=== PATIENT | female | born 1955 | race Two or more races ===

== ENCOUNTER 2024-12-24 10:59 | Outpatient (RCR) | payer MEDICAID, SELFPAY ==
--- NOTE | 2024-12-11 16:14 | CTCCONSULT_ITS ---
[facility] [address] [place], [place] [address] Consultation Note Date: 12/11/2024 MR#: [id number] Name: NICOLE DUEÑAS : 1955 Dx: C50.212 Malignant neoplasm of upper-inner quadrant of left female breast Referring physician. Carlos Honeycutt MD Reason for consultation. Patient with left breast CA referred for radiation therapy consultation. History of Present Illness: Patient is a 69-year-old lady ultrasound 08/19/2024 revealed 1.2 cm lobulated lesion left breast 10:00 highly suggestive of malignancy. Biopsy 09/09/2024 revealed invasive ductal carcinoma. On 11/12/2024 patient underwent left partial mastectomy and sentinel node dissection performed by Dr. Darin Seaman. Final path revealed invasive ductal carcinoma 1.5 cm grade 203 with low to intermediate DCIS at least 1.3 cm. Margins negative for invasive carcinoma. DCIS present less than 0.1 cm from medial margin. 2 sentinel lymph nodes negative for mets. ER/CA positive HER2/john 1+ [id number]. Ki-67 18%. Patient has been prescribed anastrozole under Dr. Honeycutt's direction. Past Medical History: Hypothyroidism Meds. Osteoporosis meds thyroid medications Family history. 1 parent's aunt with breast cancer father had prostate cancer Social History: Patient received from [facility] first menses age 19 first age 23 last menses was 2006 Review of Systems: History of headaches muscle pain dysuria back pain hypothyroidism Physical Exam: General: Adequate nourished appearing lady no acute distress HEENT: Atraumatic no cephalic extraocular is intact no oral lesion no cervical or supraclavicular adenopathy CV: left breast with surgical changes and also axillary region healing well. Chest clear to auscultation heart regular rate and rhythm ABD: Soft no organomegaly or tenderness EXT: No signs of clubbing or edema Assessment:1. Stage IA pTicpN0 ER/CA positive HER2/john negative invasive ductal carcinoma left breast status post partial mastectomy and removal of 2 sentinel nodes 11/12/2024. 2. Patient has been prescribed anastrozole under Dr. Honeycutt's direction 3. Short course radiation therapy to the residual tissue left breast, 4000 cGy in 3 weeks with the possibility of a boost additional week depending skin response. 4. Side effects discussed consent signed. 5 Thank you very much for allowing me to evaluate and manage this patient. Cc: MD Darin Landin MD Electronically signed by: Nehemias Esquivel MD, DABR 12/11/2024 4:12 PM
--- NOTE | 2024-12-11 16:15 | CTCTXPLN_ITS ---
[facility] [address] [place], [place] [address] Physician Clinical Treatment Planning Note Date of Service: 12/11/2024 Name: NICOLE DUEÑAS : 1955 The patient has agreed to proceed with Radiation therapy. Tests and supporting medical records were interpreted to assist in defining the tumor location and extent of disease. Further imaging will be necessary to contour and delineate the volume to which the XRT will be provided. A. Treatment Int ent: Curative B. Modality: Mixed C. Requested Technique: 3D D. Treatment Site: Left breast E. Critical structures to be contoured on plan: F. In order to accomplish this plan, I am ordering/Prescribing the followin. Simulations (s) will be performed to accomplish a reproducible treatment position, to determine optimal treatment portals/beam arrangements, to design beam modifying devices and verify treatment portals on patient prior to the commencement of Radiation Therapy. Left breast 2. Devices; for immobilization and beam shaping: Vac-Pradeep 3. CT Guidance for placement of XRT stokes Scan area: 4. Portal images Frequency: 5. Invivo transit dose measurement once per week on all VMAT patients. 6. Special Physics Consult Requested for: 7. Other requests: G. Dose Objectives: Curative Electronically signed by: Nehemias Esquivel M.D. 12/11/2024 4:12 PM
--- NOTE | 2024-12-11 16:15 | CTCTXPLNST_ITS ---
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 Pt Treatment Intent: curative palliative other: Stage: Procedure CPT # Ordered Spec. Procedure 38832 Hernandez Complex (set-up) 06835 Left breast/E boost 1 Hernandez Simple 12930 1 IMRT Plan 98817 MLC Devices VMAT 21146 Hernandez 3 D 25763 1 TRTMT dev Complex 56756 Vac-Pradeep 2 tangents E boost 4 TRTMT dev simple 83545 1 Basic Iam 36673 5 Special Dosimetry 64892 Spec Physics 81086 Port Films 86843 SRS Cranial/1FX 25424 SBR 5 FX or Less /ex: 5 = 5 fx 93128 IMRT Simple 95965 IMRT Complex 00872 IGRT 02544 Rad [place] 6-10 70662 [place] 11-19 63524 5005 20 Cont Med Physics 19271 5 Treatment Planning 60122 1 Weekly Evaluation 77686 4 Rad [place] 20 mev 73509 Special Port Plan 10286 TRTMT dev inter 65861 Isodose Complex 27110 Isodose simple 31071 Resp Motion Mgmt Simulation 33807 Placement of Fiducial Markers 00421 Electronically Signed By: Nehemias Esquivel MD, JOSEPHR 12/11/2024 4:13 PM
== END 2024-12-28 23:59 | disposition home or self-care (01) ==
LOC: SCTC 10:59
PROVIDERS: PCP Physician Assistant; Referring Provider Internal Medicine Hematology & Oncology; Visit Provider Radiology Therapeutic Radiology
DX: C50.212 Malignant neoplasm of upper-inner quadrant of left female breast (principal); Z17.0 Estrogen receptor positive status [ER+]; Z17.21 Progesterone receptor positive status; Z17.32 Human epidermal growth factor receptor 2 negative status; Z79.811 Long term (current) use of aromatase inhibitors; Z90.12 Acquired absence of left breast and nipple
CPT/HCPCS: 77014; 77290; 77334; 99213; G0463

== ENCOUNTER 2025-01-27 12:56 | Outpatient (RCR) | payer MEDICAID, SELFPAY ==
--- NOTE | 2024-12-31 15:58 | CTCSNOTE_ITS ---
[facility] [address] [place], [place] [address] Simple Simulation Note Date: 12/31/2024 MR#: [id number] Name: NICOLE DUEÑAS : 1955 Port was taken and the field size location and blocks were checked. (A) The port was noted to be in ideal position along with its blocks. Electronically signed by: Nehemias Esquivel MD, JOSEPHR 12/31/2024 3:56 PM
== END 2025-01-27 23:59 | disposition home or self-care (01) ==
LOC: SCTC 12:56
PROVIDERS: PCP Physician Assistant; Referring Provider Physician Assistant; Visit Provider Radiology Therapeutic Radiology
DX: Z51.0 Encounter for antineoplastic radiation therapy (principal); C50.212 Malignant neoplasm of upper-inner quadrant of left female breast; Z17.0 Estrogen receptor positive status [ER+]; Z17.21 Progesterone receptor positive status; Z17.32 Human epidermal growth factor receptor 2 negative status; Z90.12 Acquired absence of left breast and nipple; Z79.811 Long term (current) use of aromatase inhibitors
CPT/HCPCS: 77280; 77290; 77295; 77300; 77332; 77334; 77336; 77412; 77417